=== PATIENT | male | born 1985 ===

== ENCOUNTER 2023-01-25 19:54 | Emergency (ER) | payer MEDICAID, SELFPAY ==
--- NOTE | ~2023-01-25 | US_ITS ---
EXAMINATION: US VENOUS ULTRASOUND WITH DOPPLER LOWER EXTREMITY, RIGHT CLINICAL INFORMATION: Pain, rash COMPARISON: None available. TECHNIQUE: Ultrasound of the deep veins is performed from the hip to the calf with compression sonography and color and pulse Doppler assessment. Spectral analysis with color-flow imaging is performed. FINDINGS: There is normal venous compression and respiratory variation and augmented flow. The visualized common femoral vein, superficial femoral vein, profunda femoral vein, popliteal vein, and the trifurcation region shows no evidence of deep venous thrombosis. There is no significant popliteal fossa cyst. Few prominent right inguinal lymph nodes are noted which are nonspecific and may be reactive. If the patient's symptoms persist, followup ultrasound in 5 days 7 days might be of value to exclude proximal propagation from a non-visualized calf vein. US/US venous duplex LE RT IMPRESSION: No DVT demonstrated in the right lower extremity.
[2023-01-25 20:20] VITALS: BP 144/87; PULSE 84; RESP 18; TEMP 37; O2SAT 98; BMI 35.8
--- NOTE | 2023-01-25 20:22 | ED_ITS ---
HPI - General Adult General Chief complaint: Extremity Problem Stated complaint: Rash right leg/pain Time Seen by Provider: 01/26/23 00:36 Source: patient, RN notes reviewed and old records reviewed Mode of arrival: ambulatory Limitations: no limitations History of Present Illness HPI narrative: 37-year-old male presents for evaluation of right leg pain with the rash. He 1st noticed the pain 3 days ago He noticed the rash with a red area to his right naranjo 2 days ago Patient reported that he felt unwell 3 days ago as well ?like I was coming down with something. ? He denies any history of DVTs He has no calf pain but he has pain in his right thigh Related Data Previous Rx's Medication Instructions Recorded cephalexin 500 mg capsule 500 mg PO QID #28 caps 01/26/23 doxycycline monohydrate 100 mg 100 mg PO BID #14 caps 01/26/23 capsule Allergies Allergy/AdvReac Type Severity Reaction Status Date / Time No Known Allergies Allergy Verified 01/25/23 20:20 Review of Systems Constitutional: Constitutional: Reports body ache(s) and Reports malaise Musculoskeletal: Comments: Right leg pain Integumentary/Breasts: Skin/Breast: Reports erythema and Reports rash PMFSH Social History Social History Advance Directives: No Advance Directives Information Provided: Yes Physical Exam ED Vital Signs: Vital Signs - 24 hr 01/25/23 20:20 Temperature 98.6 F Pulse Rate 84 Respiratory Rate 18 Blood Pressure 144/87 H Pulse Oximetry 98 Oxygen Delivery Method Room Air BMI result Body Mass Index 35.8 Const General: healthy appearing, comfortable, no acute distress, alert and awake Nutritional Appearance: well nourished Orientation/consciousness: patient oriented x3 Eyes Eyelids: Yes eyelids normal Conjunctivae: conjunctivae normal Sclerae: sclerae normal Corneas: corneas normal Pupils: Equal, round and reactive pupils present EOM: EOMs intact bilaterally Neck Neck: Yes full ROM Skin Other: Patient has an area of erythema approximately 6 cm diameter to the right naranjo. This is noticeable for increased warmth, and significant tenderness to palpation. General skin exam: elasticity normal Neuro General: patient oriented x3 Cranial nerves: Yes Equal, round and reactive pupils present and Yes Bilaterally intact EOM present Cognition (Neuro): normal cognition Extrem Other: Moving all extremities well without any obvious deformities. No calf tenderness, negative Homans sign Course Course Course Narrative: This is a [id number]-male presenting to the emergency department with complaints of right leg pain 2 days ago. States that she was feeling dizzy, fevers and headaches yesterday and nothiced a rash on his right leg. No known trauma, injury, bites. Right leg with warm, erythematous rash to right leg. VSS. Pt is afebrile. Plan: Labs ordered. Medical Decision Making Medical Decision Making MDM Narrative: Patient has right leg swelling with an area of redness. Consistent with vasculitis for cellulitis. An ultrasound of the right lower extremity was ordered that was negative for DVT but did show swollen lymph nodes in the right lower extremity consistent with a cellulitis infection. Will treat with ceftriaxone and doxycycline Differential Diagnosis Cellulitis DVT Vasculitis Lab Data 01/25/23 21:11 01/25/23 21:11 Labs: Lab Results 01/25/23 01/25/23 Range/Units 21:11 21:11 WBC 7.9 (4.8-10.8) X10*3/uL RBC 5.27 (4.60-5.80) X10*6/uL Hgb 15.3 (14.0-18.0) g/dl Hct 45.2 (42.0-52.0) % MCV 85.8 (80.0-98.0) fL MCH 29.0 (27.0-33.0) pg MCHC 33.8 (31.0-36.0) g/dl RDW 13.2 (11.0-16.0) % Plt Count 214 (160-400) X10*3/uL MPV 8.8 L (9.4-12.4) fL Immature Gran % (Auto) 0.4 (0.0-0.4) % Neut % (Auto) 48.7 (45-73) % Lymph % (Auto) 33.2 (20-40) % [place] % (Auto) 15.6 H (2-11) % Eos % (Auto) 1.6 (0-4) % Baso % (Auto) 0.5 (0-2) % Lymph # (Auto) 2.6 (1.2-4.9) X10*3/uL [place] # (Auto) 1.2 (0.1-1.2) X10*3/uL Eos # (Auto) 0.1 (0.0-0.4) X10*3/uL Baso # (Auto) 0.0 (0.0-0.2) X10*3/uL Abs Immat Gran (auto) 0.03 (0.00-0.03) X10*3/uL Absolute Neuts (auto) 3.8 (2.0-8.3) x10*3/uL Absolute Nucleated RBC 0.000 (0.0-0.012) X10*3/uL Nucleated RBC % (auto) 0.0 (0.0-0.2) /100WBC Sodium 142 (135-145) mmol/L Potassium 4.0 (3.3-5.1) mmol/L Chloride 106 (96-108) mmol/L Carbon Dioxide 27 (22-29) mmol/L Anion Gap 13 (12-20) BUN 16 (9-16) mg/dL Creatinine 1.21 (0.5-1.4) mg/dL Estim Creat Clear Calc 93.7 Estimated GFR > 60 Random Glucose 106 (60-115) mg/dL Calcium 9.2 (8.4-10.2) mg/dL Magnesium 2.3 (1.6-2.6) mg/dL Total Bilirubin 0.6 (0.0-1.0) mg/dL Direct Bilirubin 0.1 (0.0-0.5) mg/dL AST 24 (5-37) U/L ALT 38 (0-40) U/L Alkaline Phosphatase 64 (39-117) U/L Total Protein 7.8 (6.5-8.0) g/dL Albumin 4.1 (3.5-5.0) g/dL Lipase 36 (8-78) U/L Discharge Plan Discharge Clinical Impression: Cellulitis Patient Disposition: Home, Self-Care Instructions: Cellulitis (ED) Additional Instructions: Your ultrasound was negative for blood clots but did show swollen lymph nodes consistent with an infection. Your being treated for a skin infection called cellulitis Take both antibiotics as prescribed for 1 week You can also see is warm compresses to the painful, swollen area on your leg Prescriptions: New cephalexin 500 mg capsule 500 mg PO QID Qty: 28 0RF doxycycline monohydrate 100 mg capsule 100 mg PO BID Qty: 14 0RF
[2023-01-25 21:15] LABS: MANUAL DIFF FLAG NO
[2023-01-25 21:16] LABS: Basophils Percent Auto 0.5 % (0-2); Eosinophils Absolute Auto 0.1 X10*3/uL (0.0-0.4); Eosinophils Percent Auto 1.6 % (0-4); Hematocrit 45.2 % (42.0-52.0); Hemoglobin 15.3 g/dl (14.0-18.0); Imm Gran Abs Auto 0.03 X10*3/uL (0.00-0.03); Imm Gran Pct Auto 0.4 % (0.0-0.4); Lymphocytes Absolute Auto 2.6 X10*3/uL (1.2-4.9); Lymphocytes Percent Auto 33.2 % (20-40); Mean Corpuscular HGB Conc 33.8 g/dl (31.0-36.0); Mean Corpuscular Volume 85.8 fL (80.0-98.0); Mean Platelet Volume 8.8 fL (9.4-12.4); Monocytes Absolute Auto 1.2 X10*3/uL (0.1-1.2); Monocytes Percent Auto 15.6 % (2-11); Neutrophils Absolute Auto 3.8 x10*3/uL (2.0-8.3); Neutrophils Percent Auto 48.7 % (45-73); Platelet Count 214 X10*3/uL (160-400); Red Blood Count 5.27 X10*6/uL (4.60-5.80); Red Cell Distribution Width 13.2 % (11.0-16.0); White Blood Count 7.9 X10*3/uL (4.8-10.8)
[2023-01-25 21:36] LABS: Alanine Aminotransferase 38 U/L (0-40); Albumin Level 4.1 g/dL (3.5-5.0); Alkaline Phosphatase 64 U/L (39-117); Anion Gap 13 (12-20); Aspartate Amino Transferase 24 U/L (5-37); Bilirubin Direct 0.1 mg/dL (0.0-0.5); Bilirubin Total 0.6 mg/dL (0.0-1.0); Blood Urea Nitrogen 16 mg/dL (9-16); Calcium 9.2 mg/dL (8.4-10.2); Carbon Dioxide 27 mmol/L (22-29); Chloride 106 mmol/L (96-108); Creatinine Clr Calc Pharmacy 93.7; Estimated Glomerular Filt Rate > 60; Glucose Random 106 mg/dL (60-115); Lipase 36 U/L (8-78); Magnesium 2.3 mg/dL (1.6-2.6); Sodium 142 mmol/L (135-145); Total Protein 7.8 g/dL (6.5-8.0)
[2023-01-26 02:06] VITALS: BP 113/72; PULSE 81; RESP 18; TEMP 36.4; O2SAT 96
[2023-01-26] MEDS: Doxycycline Monohydrate 100 MG CAPSULE PO (02:30)
[2023-01-26] MEDS: cephALEXin 500 MG CAPSULE PO (02:30)
--- NOTE | 2023-01-26 02:36 | PC.NURSE ---
pt medicated according to mar. pt calm and cooperative. pt ambulatory at discharge. skin pwd. vss. pt provided with discharge packet and work note. pt verbalized understanding of discharge plan
== END 2023-01-26 02:37 | disposition home or self-care (01) ==
PROVIDERS: Physician Assistant Medical; Emergency Provider Internal Medicine
DX: L03.115 Cellulitis of right lower limb (principal); M79.604 Pain in right leg; R21 Rash and other nonspecific skin eruption
CPT/HCPCS: 36415; 80048; 80076; 83690; 83735; 85025; 93971; 99284